=== PATIENT | male | born 1970 | race American Indian/Alaskan Native ===

== ENCOUNTER 2019-03-11 02:08 | Inpatient (IN) | payer OTHER ==
--- NOTE | 2019-03-11 02:26 | Emergency Department Report ---
ED Shortness of Breath HPI - General Chief Complaint: Dyspnea/Respdistress Stated Complaint: VALENTE Time Seen by Provider: 03/11/19 02:16 Source: patient, EMS Mode of arrival: Stretcher Limitations: No Limitations - History of Present Illness Initial Comments: 48-year-old male with history of asthma, hypertension, CAD presents to ED with complaint of shortness of breath that started approximately one hour ago. Pt reports onset of cough as well, productive and blood-tinged, pinkish in color. States feels like he has fluid in his lungs. Reports orthopnea. Pt denies hx of CHF. Pt currently prescribed lisinopril and clonidine, however, states he ran out of his lisinopril and has only been taking clonidine. Patient denies chest pain, leg pain or swelling. EMS reports initial O2 sats in the 80s MD Complaint: shortness of breath -: hour(s) (1) Severity: moderate Consistency: constant Improves With: nothing Worsens With: coughing Associated Symptoms: cough, sputum production Treatments Prior to Arrival: oxygen - Related Data Home Oxygen Therapy: No Home Medications Medication Instructions Recorded Confirmed Last Taken Valsartan [Diovan] 40 mg PO DAILY 08/06/14 08/06/14 Unknown hydroCHLOROthiazide 12.5 mg PO DAILY 08/06/14 08/06/14 Unknown [Hydrochlorothiazide] Previous Rx's Medication Instructions Recorded Last Taken Type Carvedilol [Coreg] 25 mg PO BID #60 tablet 08/09/14 Unknown Rx Rivaroxaban [Xarelto] 20 mg PO QPMDIAB #30 tablet 08/09/14 Unknown Rx Rosuvastatin (Nf) [Crestor] 10 mg PO QHS #30 tablet 08/09/14 Unknown Rx Valsartan [Diovan] 80 mg PO BID #60 tablet 08/09/14 Unknown Rx cloNIDine [Catapres] 0.1 mg PO Q12H PRN #30 tablet 08/09/14 Unknown Rx Allergies Allergy/AdvReac Type Severity Reaction Status Date / Time No Known Allergies Allergy Verified 12/19/13 04:26 ED Review of Systems ROS: Stated complaint: VALENTE Other details as noted in HPI Comment: All other systems reviewed and negative Constitutional: denies: chills, fever Respiratory: cough, shortness of breath Cardiovascular: denies: chest pain Musculoskeletal: other (denies leg pain or swelling) ED Past Medical Hx - Past Medical History Previous Medical History?: Yes Hx Hypertension: Yes Hx Heart Attack/AMI: Yes (8 years ago) Hx Asthma: Yes - Surgical History Past Surgical History?: Yes Additional Surgical History: rotator cuff repair R) - Social History Smoking Status: Former Smoker Substance Use Type: None - Medications Home Medications: Home Medications Medication Instructions Recorded Confirmed Last Taken Type Valsartan [Diovan] 40 mg PO DAILY 08/06/14 08/06/14 Unknown History hydroCHLOROthiazide 12.5 mg PO DAILY 08/06/14 08/06/14 Unknown History [Hydrochlorothiazide] Carvedilol [Coreg] 25 mg PO BID #60 tablet 08/09/14 Unknown Rx Rivaroxaban [Xarelto] 20 mg PO QPMDIAB #30 tablet 08/09/14 Unknown Rx Rosuvastatin (Nf) [Crestor] 10 mg PO QHS #30 tablet 08/09/14 Unknown Rx Valsartan [Diovan] 80 mg PO BID #60 tablet 08/09/14 Unknown Rx cloNIDine [Catapres] 0.1 mg PO Q12H PRN #30 tablet 08/09/14 Unknown Rx ED Physical Exam - General Limitations: No Limitations General appearance: alert - Head Head exam: Present: atraumatic, normocephalic - Eye Eye exam: Present: normal appearance - ENT ENT exam: Present: mucous membranes moist - Neck Neck exam: Present: normal inspection - Respiratory Respiratory exam: Present: respiratory distress, decreased breath sounds, other (tachypnea present) - Cardiovascular Cardiovascular Exam: Present: normal rhythm, tachycardia - GI/Abdominal GI/Abdominal exam: Present: soft. Absent: distended, tenderness - Extremities Exam Extremities exam: Present: normal inspection. Absent: pedal edema, calf tenderness - Neurological Exam Neurological exam: Present: alert, oriented X3 - Psychiatric Psychiatric exam: Present: normal affect, normal mood - Skin Skin exam: Present: warm, dry, intact, normal color ED Course Vital Signs 03/11/19 03/11/19 03/11/19 02:13 02:33 02:55 Temperature 98.2 F Pulse Rate 102 H 99 H Pulse Rate [ Posterior Bilateral Throughout] Respiratory 25 H 25 H Rate Respiratory Rate [Posterior Bilateral Throughout] Blood Pressure 211/129 225/147 O2 Sat by Pulse 98 97 Oximetry 03/11/19 03/11/19 03/11/19 02:58 03:24 03:42 Temperature Pulse Rate 106 H Pulse Rate [ 100 H 102 H Posterior Bilateral Throughout] Respiratory Rate Respiratory 19 22 Rate [Posterior Bilateral Throughout] Blood Pressure 216/140 O2 Sat by Pulse Oximetry 03/11/19 04:02 Temperature Pulse Rate 105 H Pulse Rate [ Posterior Bilateral Throughout] Respiratory Rate Respiratory Rate [Posterior Bilateral Throughout] Blood Pressure 195/124 O2 Sat by Pulse Oximetry ED Medical Decision Making - Lab Data Result diagrams: 03/11/19 02:36 03/11/19 02:36 - EKG Data -: EKG Interpreted by [facility] EKG shows normal: sinus rhythm, axis, intervals, QRS complexes Rate: tachycardia (rate 101) - EKG Data When compared to previous EKG there are: no significant change (compared to 08/2014) Interpretation: LVH, other (T wave inversions in lateral leads) - Radiology Data Radiology results: report reviewed, image reviewed - Medical Decision Making - 48 yo M w/ HTN, CAD, asthma present w/ acute resp distress and hypertensive urgency - reports orthopnea and pinkish sputum - hydralazine given for BP control - albuterol, atrovent nebs given initially due to decreased breath sounds and hx asthma - however, CXR appears to have interstitial infiltrates, cardiomegaly, and BNP is elevated; this is likely new onset CHF - CXR reports states pneumonia also possible, however, pt afebrile w/ normal WBCs - respiratory status has improved, no need for BiPAP at this time - Cr 2.2 and pt hypokalemic; will hold lasix at this time - pt admitted to hospitalist for further management - Differential Diagnosis CHF, pneumonia, asthma, PE Critical Care Time: Yes Critical care time in (mins) excluding proc time.: 35 Critical care attestation.: If time is entered above; I have spent that time in minutes in the direct care of this critically ill patient, excluding procedure time. Critical Care Time: 35 minutes ED Disposition Clinical Impression: Acute respiratory distress, Acute renal failure, New onset of congestive heart failure, Hypokalemia, Hypertensive emergency Disposition: OP ADMIT IP TO THIS HOSP Is pt being admited?: Yes Condition: Stable Instructions: Hypertension (ED) Referrals: CASSIDY JACOBS MD [Primary Care Provider] - 3-5 Days Time of Disposition: 03:27
[2019-03-11 02:45] LABS: Basophils # (Auto) 0.1 K/mm3 (0.0-0.1); Basophils % (Auto) 1.1 % (0.0-1.8); Eosinophils # (Auto) 0.2 K/mm3 (0.0-0.4); Eosinophils % (Auto) 1.7 % (0.0-4.3); Hematocrit 44.1 % (35.5-45.6); Hemoglobin 14.4 gm/dl (11.8-15.2); Lymphocytes # (Auto) 2.8 K/mm3 (1.2-5.4); Lymphocytes % (Auto) 27.9 % (13.4-35.0); Mean Corpuscular HGB Conc 33 % (32-34); Mean Corpuscular Volume 85 fl (84-94); Monocytes # (Auto) 0.8 K/mm3 (0.0-0.8); Monocytes % (Auto) 7.8 % (0.0-7.3); Platelet Count 111 K/mm3 (140-440); Red Blood Count 5.16 M/mm3 (3.65-5.03)
[2019-03-11] MEDS ORDERED: APRESOLINE IV ONE ×2 (02:48→03:38)
[2019-03-11] MEDS ORDERED: PROVENTIL IH ONE (02:49)
[2019-03-11] MEDS ORDERED: ATROVENT IH ONE (02:49)
--- NOTE | 2019-03-11 02:52 | XRay Report ---
CHEST 1 VIEW INDICATION: sob. COMPARISON: None. FINDINGS: Support devices: None. Heart: Enlarged Lungs/Pleura: There are somewhat patchy rather diffuse bilateral pulmonary opacities, greater on the right. No significant effusion, no pneumothorax. IMPRESSION: 1. Patchy bilateral pulmonary opacities, greater on the right. These are nonspecific. Bilateral pneum onia could have this appearance, given the patchy appearance. 2. Cardiomegaly. Signer Name: Celestine Price MD Signed: 03/11/2019 2:48 AM Workstation Name: [id number]
[2019-03-11 02:56] LABS: INR 1.56 (0.87-1.13)
[2019-03-11 02:57] LABS: Partial Thromboplastin Time 31.8 Sec. (24.2-36.6)
[2019-03-11 03:02] LABS: Calcium 8.8 mg/dL (8.4-10.2)
[2019-03-11] MEDS ORDERED: K-DUR PO ONE ×2 (03:11→13:00)
[2019-03-11] MEDS ORDERED: NITRO-BID 2% TP ONE ×2 (04:00→04:02)
[2019-03-11] MEDS ORDERED: LASIX IV ONE (04:06)
[2019-03-11] MEDS ORDERED: SODIUM CHLORIDE FLUSH SYRINGE 10 ML IV PRN (04:07)
[2019-03-11] MEDS ORDERED: TYLENOL PO PRN (04:07)
[2019-03-11] MEDS ORDERED: ZOFRAN IV PRN (04:07)
[2019-03-11] MEDS ORDERED: LASIX ONE (04:10)
--- NOTE | 2019-03-11 04:13 | History and Physical Report ---
History of Present Illness Date of examination: 03/11/19 History of present illness: 48-year-old man with a history of coronary artery disease, hypertension, asthma comes emergency room with complaints of shortness of breath cough productive of pink blood tinge sputum. He has been noncompliant with antihypertensive little over 2 months. Complaining of feeling dizzy Review of systems Constitutional: no weight loss, chills, fever Ears, eyes, nose, mouth and throat: no nasal congestion, no nasal discharge, no sinus pressure, no vision change, no red eye. Neck: No neck pain or rigidity. Cardiovascular: no palpitations, chest pain Respiratory: + cough, shortness of breath Gastrointestinal: no hematochezia, abdominal pain Genitourinary : no frequency , no hematuria Musculoskeletal: no joint swelling or muscle ache Integumentary: no rash, no pruritis Neurological: no parathesias, no focal weakness Endocrine: no cold or heat intolerance, no polyuria or polydipsia Hematologic/Lymphatic: no easy bruising, no easy bleeding, no gland swelling Allergic/Immunologic: no urticaria, no angioedema. PAST MEDICAL HISTORY:coronary artery disease, hypertension, asthma PAST SURGICAL HISTORY: Rotator cuff SOCIAL HISTORY: Denies alcohol, drugs, tobacco FAMILY HISTORY: Hypertension Medications and Allergies Allergies Allergy/AdvReac Type Severity Reaction Status Date / Time No Known Allergies Allergy Verified 12/19/13 04:26 Home Medications Medication Instructions Recorded Confirmed Last Taken Type Aspirin EC 81 mg PO QDAY #30 tablet. 03/14/19 Unknown Rx AtorvaSTATin [Lipitor] 20 mg PO QHS #30 tab 03/14/19 Unknown Rx Carvedilol [Coreg] 25 mg PO BID #60 tablet 03/14/19 Unknown Rx NIFEdipine XL [Procardia Xl] 90 mg PO QDAY #30 tablet 03/14/19 Unknown Rx Potassium Chloride [K-Dur] 20 meq PO QDAY #4 tablet 03/14/19 Unknown Rx Spironolactone [Aldactone] 25 mg PO QDAY #30 tablet 03/14/19 Unknown Rx hydrALAZINE [Apresoline TAB] 50 mg PO Q8HR #90 tablet 03/14/19 Unknown Rx Active Meds: Active Medications Acetaminophen (Tylenol) 650 mg PO Q4H PRN PRN Reason: Pain MILD(1-3)/Fever >100.5/ELLIOTT Enoxaparin Sodium (Lovenox) 30 mg SUB-Q QDAY DEIS[facility] Furosemide (Lasix) 10 mg IV ONCE ONE Stop: 03/11/19 04:07 Potassium Chloride (Kcl 10meq/100ml) 10 meq in 100 mls @ 100 mls/hr IV Q1H DEISI Stop: 03/11/19 08:59 Ondansetron HCl (Zofran) 4 mg IV Q8H PRN PRN Reason: Nausea And Vomiting Sodium Chloride (Sodium Chloride Flush Syringe 10 Ml) 10 ml IV BID DEISI Sodium Chloride (Sodium Chloride Flush Syringe 10 Ml) 10 ml IV PRN PRN PRN Reason: LINE FLUSH Exam - Physical Exam Narrative exam: General Apperance: The patient lying in bed, breathing comfortable HEENT: Normocephalic, atraumatic. Pupils equally round and reactive to light, EOMI, no sclericterus or JVD or thyromegaly or nodule. , no carotid bruit, mucous membranes moist, no exudate or erythema Heart: S1-S2, regular is rhythm Lungs: Mild crackles bilaterally, breathing comfortable Abdomen: Positive bowel sounds, soft, nontender, nondistended, no organomegaly Extremities: No edema cyanosis clubbing Skin: no rash, nodule, warm and dry Neuro: cranial nerves 2-12 intact, speech is fluent, motor/sensory intact - Constitutional Vitals: Temp Pulse Resp BP Pulse Ox 98.2 F 105 H 22 195/124 97 03/11/19 02:13 03/11/19 04:02 03/11/19 03:24 03/11/19 04:02 03/11/19 02:33 Results - Labs CBC & Chem 7: 03/12/19 04:37 03/14/19 05:29 Labs: Abnormal lab results 03/11/19 03/11/19 03/11/19 Range/Units 02:36 02:36 02:36 RBC 5.16 H (3.65-5.03) M/mm3 RDW 16.0 H (13.2-15.2) % Plt Count 111 L (140-440) K/mm3 [place] % (Auto) 7.8 H (0.0-7.3) % PT 18.3 H (12.2-14.9) Sec. INR 1.56 H (0.87-1.13) D-Dimer 261.03 H (0-234) ng/mlDDU Potassium (3.6-5.0) mmol/L BUN (9-20) mg/dL Creatinine (0.8-1.5) mg/dL Glucose (75-100) mg/dL NT-Pro-B Natriuret Pep 753.5 H (0-450) pg/mL 03/11/19 Range/Units 02:36 RBC (3.65-5.03) M/mm3 RDW (13.2-15.2) % Plt Count (140-440) K/mm3 [place] % (Auto) (0.0-7.3) % PT (12.2-14.9) Sec. INR (0.87-1.13) D-Dimer (0-234) ng/mlDDU Potassium 2.4 L* (3.6-5.0) mmol/L BUN 25 H (9-20) mg/dL Creatinine 2.2 H (0.8-1.5) mg/dL Glucose 122 H (75-100) mg/dL NT-Pro-B Natriuret Pep (0-450) pg/mL - Imaging and Cardiology EKG: image reviewed Chest x-ray: image reviewed Assessment and Plan Assessment Hypertensive urgency, malignant Pulmonary edema secondary to #1 Hypokalemia Abnormal d-dimer Renal failure most likely chronic from unontrolled BP Coronary artery disease Thrombocytopenia Plan Admit to medicine Give a small dose of IV Lasix, Nitropaste repeat potassium aggressively, follow repeat BMP IV hydralazine as needed for BP control Check CT head, v/Q, cardiac enzymes, echo DVT prophylaxis
[2019-03-11] MEDS ORDERED: APRESOLINE IV PRN ×2 (04:16→17:46)
[2019-03-11] MEDS: KCL 10MEQ/100ML 10 MEQ/100 ML BAG IV SCH ×4 (04:30→10:04)
[2019-03-11 04:46] LABS: Creatine Kinase MB 2.6 ng/mL (0.0-4.0)
[2019-03-11] MEDS: LEVAQUIN PO SCH (05:14)
[2019-03-11] MEDS ORDERED: KCL 10MEQ/100ML 10 MEQ/100 ML BAG IV ONE ×3 (05:37→10:00)
--- NOTE | 2019-03-11 05:37 | Cat Scan Report ---
CT HEAD WITHOUT CONTRAST INDICATION: htn dizzy. TECHNIQUE: All CT scans at this location are performed using CT dose reduction for ALARA by means of automated e xposure control. COMPARISON: CT 08/06/2014 FINDINGS: HEMORRHAGE: None. EXTRA-AXIAL SPACES: Normal in size and morphology for the patient's age. VENTRICULAR SYSTEM: Normal in size and morphology for the patient's age. BRAIN PARENCHYMA: No acute findings. MIDLINE SHIFT OR HERNIATION: None. ORBITS: Normal as visualized. SOFT TISSUES OF HEAD: Normal. CALVARIUM: Normal. VISUALIZED PARANASAL SINUSES AND MASTOID AIR CELLS: Clear. ADDITIONAL FINDINGS: None. IMPRESSION: 1. No acute intracranial abnormality. Signer Name: Celestine Price MD Signed: 03/11/2019 5:33 AM Workstation Name: [id number]
[2019-03-11] MEDS ORDERED: LOVENOX SUB-Q SCH (10:00)
[2019-03-11] MEDS: SODIUM CHLORIDE FLUSH SYRINGE 10 ML IV SCH ×2 (10:04→21:26)
[2019-03-11 10:40] LABS: Creatine Kinase MB 2.2 ng/mL (0.0-4.0)
[2019-03-11 10:45] LABS: Calcium 8.8 mg/dL (8.4-10.2)
--- NOTE | 2019-03-11 13:14 | Consultation ---
<SURJIT LEONARD - Last Filed: 03/11/19 13:10> History of Present Illness Consult date: 03/11/19 Consult reason: shortness of breath History of present illness: Patient is a 48-year old male with a history of paroxysmal atrial fibrillation, no longer on anticoagulation, and hypertension. His latest cardiac workup was done in 2013. At that time, he had a normal persantine thallium stress test and a normal LVEF by echocardiogram. He presents to this hospital with complaints of shortness of breath and coughs, admitted with acute respiratory failure, hypertensive urgency and acute renal failure. Chest x-ray reports cardiomegaly with diffuse bilateral pulmonary opacities. Creatinine 2.2. Initial labs also shows a platelet count of 111,000 and severe hypokalemia, potassium of 2.4. WBC is normal. Patient admits to running out of his medications. He denies chest pain and palpitations. There is no lower extremity edema. An EKG is sinus rhythm, LVH with repolarization abnormalities. Medications and Allergies Allergies Allergy/AdvReac Type Severity Reaction Status Date / Time No Known Allergies Allergy Verified 12/19/13 04:26 Home Medications Medication Instructions Recorded Confirmed Last Taken Type Carvedilol [Coreg] 25 mg PO BID #60 tablet 08/09/14 03/11/19 Unknown Rx Lisinopril [Zestril TAB] 10 mg PO QDAY 03/11/19 03/11/19 Unknown History Active Meds: Active Medications Acetaminophen (Tylenol) 650 mg PO Q4H PRN PRN Reason: Pain MILD(1-3)/Fever >100.5/ELLIOTT Hydralazine HCl (Apresoline) 5 mg IV Q6H PRN PRN Reason: Hypertension Levofloxacin (Levaquin) 750 mg PO QDAY [facility] Last Admin: 03/11/19 05:14 Dose: 750 mg Documented by: Ondansetron HCl (Zofran) 4 mg IV Q8H PRN PRN Reason: Nausea And Vomiting Potassium Chloride (K-Dur) 40 meq PO QDAY [facility] Sodium Chloride (Sodium Chloride Flush Syringe 10 Ml) 10 ml IV BID [facility] Last Admin: 03/11/19 10:04 Dose: 10 ml Documented by: Sodium Chloride (Sodium Chloride Flush Syringe 10 Ml) 10 ml IV PRN PRN PRN Reason: LINE FLUSH Physical Examination Vital Signs Temp Pulse Resp BP Pulse Ox 98.2 F 102 H 25 H 211/129 98 03/11/19 02:13 03/11/19 02:13 03/11/19 02:13 03/11/19 02:13 03/11/19 02:13 General appearance: no acute distress HEENT: Positive: PERRL Neck: Positive: trachea midline Cardiac: Positive: Reg Rate and Rhythm Lungs: Positive: Decreased Breath Sounds Extremities: Absent: edema Results 03/11/19 02:36 03/11/19 10:10 Cardiac Enzymes 03/11/19 03/11/19 Range/Units 04:16 10:10 CK-MB (CK-2) 2.6 2.2 (0.0-4.0) ng/mL Coagulation 03/11/19 Range/Units 02:36 PT 18.3 H (12.2-14.9) Sec. INR 1.56 H (0.87-1.13) APTT 31.8 (24.2-36.6) Sec. CBC 03/11/19 Range/Units 02:36 WBC 10.1 (4.5-11.0) K/mm3 RBC 5.16 H (3.65-5.03) M/mm3 Hgb 14.4 (11.8-15.2) gm/dl Hct 44.1 (35.5-45.6) % Plt Count 111 L (140-440) K/mm3 Lymph # 2.8 (1.2-5.4) K/mm3 [place] # 0.8 (0.0-0.8) K/mm3 Eos # 0.2 (0.0-0.4) K/mm3 Baso # 0.1 (0.0-0.1) K/mm3 Comprehensive Metabolic Panel 03/11/19 03/11/19 Range/Units 02:36 10:10 Sodium 140 140 (137-145) mmol/L Potassium 2.4 L* 3.1 L D (3.6-5.0) mmol/L Chloride 100.5 100.7 (98-107) mmol/L Carbon Dioxide 27 27 (22-30) mmol/L BUN 25 H 22 H (9-20) mg/dL Creatinine 2.2 H 2.0 H (0.8-1.5) mg/dL Glucose 122 H 143 H (75-100) mg/dL Calcium 8.8 8.8 (8.4-10.2) mg/dL Assessment and Plan Acute respiratory failure Hypertensive urgency Noncompliant with medications Hypokalemia Acute renal failure Thrombocytopenia Recommendations: Optimal BP management. We will obtain an echocardiogram for LVEF assessment. Neurology evaluation and workup of acute renal failure. <JACKY CURRIE - Last Filed: 03/11/19 19:11> Medications and Allergies Active Meds: Active Medications Acetaminophen (Tylenol) 650 mg PO Q4H PRN PRN Reason: Pain MILD(1-3)/Fever >100.5/ELLIOTT Amlodipine Besylate (Norvasc) 10 mg PO QDAY [facility] Last Admin: 03/11/19 18:03 Dose: 10 mg Documented by: Carvedilol (Coreg) 25 mg PO BID [facility] Last Admin: 03/11/19 14:50 Dose: 25 mg Documented by: Hydralazine HCl (Apresoline) 10 mg IV Q30MIN PRN PRN Reason: HTNN SBP>175 Hydralazine HCl (Apresoline) 50 mg PO Q8HR [facility] Last Admin: 03/11/19 18:03 Dose: 50 mg Documented by: Levofloxacin (Levaquin) 750 mg PO QDAY [facility] Last Admin: 03/11/19 05:14 Dose: 750 mg Documented by: Lisinopril (Zestril) 10 mg PO QDAY [facility] Ondansetron HCl (Zofran) 4 mg IV Q8H PRN PRN Reason: Nausea And Vomiting Potassium Chloride (K-Dur) 40 meq PO QDAY [facility] Sodium Chloride (Sodium Chloride Flush Syringe 10 Ml) 10 ml IV BID [facility] Last Admin: 03/11/19 10:04 Dose: 10 ml Documented by: Sodium Chloride (Sodium Chloride Flush Syringe 10 Ml) 10 ml IV PRN PRN PRN Reason: LINE FLUSH Last Admin: 03/11/19 13:47 Dose: 10 ml Documented by: Physical Examination Vital Signs Temp Pulse Resp BP Pulse Ox 98.2 F 102 H 25 H 211/129 98 03/11/19 02:13 03/11/19 02:13 03/11/19 02:13 03/11/19 02:13 03/11/19 02:13 Results 03/11/19 02:36 03/11/19 10:10 Cardiac Enzymes 03/11/19 03/11/19 Range/Units 04:16 10:10 CK-MB (CK-2) 2.6 2.2 (0.0-4.0) ng/mL Coagulation 03/11/19 Range/Units 02:36 PT 18.3 H (12.2-14.9) Sec. INR 1.56 H (0.87-1.13) APTT 31.8 (24.2-36.6) Sec. CBC 03/11/19 Range/Units 02:36 WBC 10.1 (4.5-11.0) K/mm3 RBC 5.16 H (3.65-5.03) M/mm3 Hgb 14.4 (11.8-15.2) gm/dl Hct 44.1 (35.5-45.6) % Plt Count 111 L (140-440) K/mm3 Lymph # 2.8 (1.2-5.4) K/mm3 [place] # 0.8 (0.0-0.8) K/mm3 Eos # 0.2 (0.0-0.4) K/mm3 Baso # 0.1 (0.0-0.1) K/mm3 Comprehensive Metabolic Panel 03/11/19 03/11/19 Range/Units 02:36 10:10 Sodium 140 140 (137-145) mmol/L Potassium 2.4 L* 3.1 L D (3.6-5.0) mmol/L Chloride 100.5 100.7 (98-107) mmol/L Carbon Dioxide 27 27 (22-30) mmol/L BUN 25 H 22 H (9-20) mg/dL Creatinine 2.2 H 2.0 H (0.8-1.5) mg/dL Glucose 122 H 143 H (75-100) mg/dL Calcium 8.8 8.8 (8.4-10.2) mg/dL Assessment and Plan I have seen and evaluated the patient and agree with the assessment and plan. Recommend maximization of medical therapy as blood pressure allows. Check echo for evaluation of LV structure and function.
--- NOTE | 2019-03-11 14:26 | Event Note ---
Date: 03/11/19 Patient seen and examined Feeling better today, blood sugar improved, tolerating diet Continue current plan and management as dictated in H&P.
[2019-03-11] MEDS: COREG PO SCH ×2 (14:50→21:25)
[2019-03-11] MEDS ORDERED: ZESTRIL PO SCH (17:46)
[2019-03-11] MEDS: APRESOLINE PO SCH ×2 (18:03→21:25)
[2019-03-11] MEDS: NORVASC PO SCH (18:03)
[2019-03-12] MEDS: APRESOLINE PO SCH ×3 (05:16→22:06)
[2019-03-12 05:42] LABS: Basophils # (Auto) 0.1 K/mm3 (0.0-0.1); Basophils % (Auto) 0.5 % (0.0-1.8); Eosinophils % (Auto) 0.4 % (0.0-4.3); Hematocrit 41.1 % (35.5-45.6); Hemoglobin 13.5 gm/dl (11.8-15.2); Lymphocytes % (Auto) 16.8 % (13.4-35.0); Mean Corpuscular HGB Conc 33 % (32-34); Mean Corpuscular Volume 85 fl (84-94); Monocytes % (Auto) 8.1 % (0.0-7.3); Platelet Count 110 K/mm3 (140-440); Red Blood Count 4.82 M/mm3 (3.65-5.03); Red Cell Distribution Width 15.9 % (13.2-15.2)
[2019-03-12 06:03] LABS: Calcium 9.3 mg/dL (8.4-10.2)
[2019-03-12] MEDS: NORVASC PO SCH (09:51)
[2019-03-12] MEDS: SODIUM CHLORIDE FLUSH SYRINGE 10 ML IV SCH ×2 (09:52→22:07)
[2019-03-12] MEDS: COREG PO SCH ×2 (09:52→22:06)
[2019-03-12] MEDS ORDERED: K-DUR PO SCH (10:00)
[2019-03-12] MEDS ORDERED: ZESTRIL PO SCH (10:00)
[2019-03-12] MEDS: LEVAQUIN PO SCH (10:08)
--- NOTE | 2019-03-12 11:00 | Progress Note ---
Assessment and Plan Acute respiratory failure Pulmonary edema Hypertensive urgency Noncompliant with medications Hypokalemia Acute renal failure Thrombocytopenia Recommend: Echocardiogram for LVEF assessment. Nephrology evaluation and workup in renal failure. Subjective Date of service: 03/12/19 Interval history: Patient is resting in bed comfortably. Reports his breathing is better. Stable sinus rhythm on telemetry. Objective Vital Signs Temp Pulse Resp BP BP Pulse Ox 03/12/19 08:20 98.0 F 18 161/110 03/12/19 03:38 97.9 F 80 19 134/92 97 03/12/19 03:00 84 03/11/19 22:53 98.0 F 87 18 131/88 97 03/11/19 21:25 89 184/126 03/11/19 21:18 184/126 03/11/19 19:35 98.1 F 91 H 19 157/108 97 03/11/19 18:03 187/125 03/11/19 17:00 98.1 F 18 187/125 03/11/19 16:58 91 H 182/129 98 03/11/19 14:50 191/130 03/11/19 13:30 97.8 F 18 191/130 03/11/19 12:48 100 03/11/19 12:11 175/97 100 03/11/19 12:10 86 16 170/72 98 03/11/19 12:02 88 17 175/97 100 03/11/19 11:50 90 17 175/97 100 03/11/19 11:40 89 17 175/97 100 03/11/19 11:30 89 18 175/97 100 03/11/19 11:20 88 18 175/97 100 03/11/19 11:10 90 19 175/97 100 03/11/19 11:00 90 22 158/95 100 - Physical Examination General: No Apparent Distress HEENT: Positive: PERRL Neck: Positive: trachea midline Cardiac: Positive: Reg Rate and Rhythm Lungs: Positive: Decreased Breath Sounds Neuro: Positive: Grossly Intact Extremities: Absent: edema - Labs and Meds CBC 03/12/19 Range/Units 04:37 WBC 12.0 H (4.5-11.0) K/mm3 RBC 4.82 (3.65-5.03) M/mm3 Hgb 13.5 (11.8-15.2) gm/dl Hct 41.1 (35.5-45.6) % Plt Count 110 L (140-440) K/mm3 Lymph # 2.0 (1.2-5.4) K/mm3 [place] # 1.0 H (0.0-0.8) K/mm3 Eos # 0.0 (0.0-0.4) K/mm3 Baso # 0.1 (0.0-0.1) K/mm3 Comprehensive Metabolic Panel 03/12/19 Range/Units 04:37 Sodium 141 (137-145) mmol/L Potassium 3.1 L (3.6-5.0) mmol/L Chloride 102.8 (98-107) mmol/L Carbon Dioxide 25 (22-30) mmol/L BUN 24 H (9-20) mg/dL Creatinine 2.0 H (0.8-1.5) mg/dL Glucose 114 H (75-100) mg/dL Calcium 9.3 (8.4-10.2) mg/dL
--- NOTE | 2019-03-12 15:15 | XRay Report ---
CHEST 1 VIEW INDICATION: Pulmonary edema, shortness of breath for 2 days. COMPARISON: 03/11/2028 FINDINGS: Support devices: None. Heart: Within normal limits. Lungs/Pleura: No acute air space or interstitial disease. Additional findings: None. IMPRESSION: Mild cardiomegaly and pulmonary venous congestion have resolved since the previous exam. Unremarkabl e chest x-ray. Signer Name: Trevor Segura Jr, MD Signed: 03/12/2019 2:54 PM Workstation Name: [id number]
--- NOTE | 2019-03-12 15:50 | Progress Note ---
Assessment and Plan Acute hypoxic respiratory failure due to pulmonary edema - Now resolved with diuresis - Continue to monitor with O2 sat, continue diuresis - Follow 2-D echo Malignant hypertension - Likely due to medication noncompliance - Resumed home meds and adjust medications as needed - IV hydralazine as needed Noncompliance with medication, counseled Hypokalemia, continue to replete and monitor BMP Acute renal failure, could be from medication induced versus nephropathy - Continue to monitor renal function, order renal ultrasound, consult nephrology Thrombocytopenia, continue to monitor CBC DVT prophylaxis, continue heparin Brief History: Patient is a 48-year old male with a history of paroxysmal atrial fibrillation, no longer on anticoagulation, and hypertension presents to this hospital with complaints of shortness of breath and coughs, admitted with acute respiratory failure, hypertensive urgency and acute renal failure. Chest x-ray reports cardiomegaly with diffuse bilateral pulmonary opacities. Creatinine 2.2. Initial labs also shows a platelet count of 111,000 and severe hypokalemia, potassium of 2.4. WBC is normal. Radiological data: Chest x-ray: Cardiomegaly with diffuse bilateral pulmonary opacities 2-D echo: Report pending Hospitalist Physical exam: GENERAL: well-developed and well-nourished -[place] Citizen male lying on bed appeared to be in no discomfort. HEENT: Normocephalic. Atraumatic. No conjunctival congestion or icterus. Patient has moist mucous membranes. NECK: Supple. Trachea midline. CHEST/LUNGS: Few crackles auscultated bilaterally, breathing nonlabored. No wheezes or rhonchi. HEART/CARDIOVASCULAR: Regular in rate and rhythm. S1 and S2 positive. ABDOMEN: Abdomen is soft, nontender. Patient has normal bowel sounds. SKIN: There is no rash. Warm and dry. NEURO: No focal motor deficit. Follows command. MUSCULOSKELETAL: No joint effusion or tenderness. EXTRIMITY: No edema, no cyanosis or clubbing. PSYCH: Cooperative. Subjective Date of service: 03/12/19 Interval history: Patient seen and examined. Medical records and medication list reviewed. No acute event overnight noted by the RN. Patient denies any chest pain or difficulty breathing today. Patient is tolerating diet. Discussed plan of care at bedside with patient. Objective - Constitutional Vitals: Vital Signs - 12hr 03/12/19 08:20 Temperature 98.0 F Respiratory 18 Rate Blood Pressure 161/110 - Labs CBC & Chem 7: 03/12/19 04:37 03/12/19 19:52 Labs: Abnormal lab results 03/12/19 03/12/19 Range/Units 04:37 04:37 WBC 12.0 H (4.5-11.0) K/mm3 RDW 15.9 H (13.2-15.2) % Plt Count 110 L (140-440) K/mm3 Bryan % (Auto) 8.1 H (0.0-7.3) % Bryan # 1.0 H (0.0-0.8) K/mm3 Seg Neutrophils % 74.2 H (40.0-70.0) % Seg Neutrophils # 8.9 H (1.8-7.7) K/mm3 Potassium 3.1 L (3.6-5.0) mmol/L BUN 24 H (9-20) mg/dL Creatinine 2.0 H (0.8-1.5) mg/dL Glucose 114 H (75-100) mg/dL
[2019-03-12] MEDS: LASIX PO SCH (20:07)
[2019-03-12] MEDS: PROCARDIA XL PO SCH (20:07)
[2019-03-12] MEDS: ALDACTONE PO SCH (20:07)
[2019-03-12 21:33] LABS: Albumin 3.5 g/dL (3.9-5); Calcium 8.8 mg/dL (8.4-10.2)
[2019-03-12] MEDS: HEPARIN SUB-Q SCH (22:07)
[2019-03-13] MEDS: APRESOLINE PO SCH ×3 (05:25→22:26)
[2019-03-13] MEDS: LASIX PO SCH (05:26)
[2019-03-13 05:44] LABS: Bilirubin,Urine NEG (Negative); Blood,Urine NEG (Negative); Color,Urine Yellow (Yellow); Hyaline Casts,Urine 10 /LPF; Mucus,Urine FEW /HPF; Urobilinogen,Urine < 2.0 mg/dL (<2.0)
[2019-03-13 05:47] LABS: Creatinine,Urine 167.3 mg/dL (0.1-20.0); Protein/Creatinine Ratio,Urine 0.37
[2019-03-13] MEDS ORDERED: LEXISCAN IV ONE ×2 (07:42→08:17)
--- NOTE | 2019-03-13 08:39 | Consultation ---
History of Present Illness - Reason for Consult Consult date: 03/13/19 acute renal failure, chronic renal failure - History of Present Illness The patient is a 48 YO male with history significant for Obesity, poorly controlled HTN, Paroxysmal atrial fibrillation not on anticoagulation and chron ic kidney disease who presented to [facility] ED with complaints of shortness of breath and cough productive of phlegm for the past several weeks, worse for the past week. He has been noncompliant with antihypertensive medication anc currently not taking any meds. He also reports feeling dizzy at times. His initial BP was around 220/140 mmHg. He was admitted with acute respiratory failure, hypertensive urgency and acute renal failure. Chest x-ray reported cardiomegaly with diffuse bilateral pulmonary opacities. Initial Creatinine was 2.2 and potassium of 2.4. Nephrology was consulted for further evaluation. Past History Past Medical History: hypertension, renal failure Medications and Allergies Allergies Allergy/AdvReac Type Severity Reaction Status Date / Time No Known Allergies Allergy Verified 12/19/13 04:26 Home Medications Medication Instructions Recorded Confirmed Last Taken Type Carvedilol [Coreg] 25 mg PO BID #60 tablet 08/09/14 03/11/19 Unknown Rx Lisinopril [Zestril TAB] 10 mg PO QDAY 03/11/19 03/11/19 Unknown History Active Meds: Active Medications Acetaminophen (Tylenol) 650 mg PO Q4H PRN PRN Reason: Pain MILD(1-3)/Fever >100.5/ELLIOTT Carvedilol (Coreg) 25 mg PO BID [facility] Last Admin: 03/12/19 22:06 Dose: 25 mg Documented by: Furosemide (Lasix) 60 mg PO DAILY@0600 [facility] Last Admin: 03/13/19 05:26 Dose: 60 mg Documented by: Heparin Sodium (Porcine) (Heparin) 5,000 unit SUB-Q Q12HR [facility] Last Admin: 03/12/19 22:07 Dose: 5,000 unit Documented by: Hydralazine HCl (Apresoline) 10 mg IV Q30MIN PRN PRN Reason: HTNN SBP>175 Last Admin: 03/11/19 21:25 Dose: 10 mg Documented by: Hydralazine HCl (Apresoline) 50 mg PO Q8HR [facility] Last Admin: 03/13/19 05:25 Dose: 50 mg Documented by: Levofloxacin (Levaquin) 750 mg PO QDAY [facility] Last Admin: 03/12/19 10:08 Dose: 750 mg Documented by: Nifedipine (Procardia Xl) 60 mg PO QDAY [facility] Last Admin: 03/12/19 20:07 Dose: 60 mg Documented by: Ondansetron HCl (Zofran) 4 mg IV Q8H PRN PRN Reason: Nausea And Vomiting Sodium Chloride (Sodium Chloride Flush Syringe 10 Ml) 10 ml IV BID [facility] Last Admin: 03/12/19 22:07 Dose: 10 ml Documented by: Sodium Chloride (Sodium Chloride Flush Syringe 10 Ml) 10 ml IV PRN PRN PRN Reason: LINE FLUSH Last Admin: 03/11/19 13:47 Dose: 10 ml Documented by: Spironolactone (Aldactone) 25 mg PO QDAY [facility] Last Admin: 03/12/19 20:07 Dose: 25 mg Documented by: Review of Systems Constitutional: no weight loss, no weight gain, no fever, no chills, no anorexia, no fatigue, no weakness Cardiovascular: orthopnea, lightheadedness, shortness of breath, dyspnea on exertion, high blood pressure, decreased exercise tolerance, no chest pain, no palpitations, no edema, no syncope, no leg edema Respiratory: cough, cough with sputum, shortness of breath, dyspnea on exertion, no hemoptysis, no home oxygen Gastrointestinal: no abdominal pain, no nausea, no vomiting, no diarrhea, no constipation Genitourinary Male: no dysuria, no hematuria, no urinary frequency Musculoskeletal: no morning stiffness, no muscle weakness, no myalgias Integumentary: no rash, no wounds Neurological: no paralysis, no weakness, no numbness, no tingling, no seizures, no syncope, no convulsions, no aphasia, no change in speech, no change in mentation, no confusion Exam - Vital Signs Vital signs: Vital Signs Temp Pulse Resp BP Pulse Ox 98.2 F 102 H 25 H 211/129 98 03/11/19 02:13 03/11/19 02:13 03/11/19 02:13 03/11/19 02:13 03/11/19 02:13 - General Appearance General appearance: well-developed, well-nourished, appears stated age, obese, other (no distress) EENT: ATNC, PERRL, hearing intact, vision intact Neck: Present: neck supple, trachea midline Respiratory: Rales Heart: regular, S1S2, no murmurs Gastrointestinal: Present: normoactive bowel sounds. Absent: tenderness, distended Integumentary: no rash, warm and dry Neurologic: no focal deficit, no asterixis, alert and oriented x3 Musculoskeletal: Present: other (no edema) Results - Lab Results 03/12/19 04:37 03/14/19 05:29 Most recent lab results Calcium 8.8 mg/dL (8.4-10.2) 03/12/19 19:52 Phosphorus 2.50 mg/dL (2.5-4.5) 03/12/19 19:52 Magnesium 2.00 mg/dL (1.7-2.3) 03/12/19 19:52 167.3 mg/dL (0.1-20.0) H 03/13/19 04:55 55 mmol/L 03/13/19 04:55 62 mg/dL (5-11.8) H 03/13/19 04:55 - Image Kidney/bladder ultrasound: report reviewed Assessment and Plan 1. Acute kidney injury: Vasomotor / hemodynamic LV superimposed on CKD in the setting of CHF. Renal US was negative for hydro. Renal function is mostly stable. Suspect worsening CKD. Monitor renal function. Renal function prognosis is guarded. Avoid nephrotoxic agents. Meds dosage based on GFR. 2. FEN: Hypokalemia, replete K. Volume overload, improving with lasix. Monitor lytes. 3. Acute CHF: HFpEF. 4. Uncontrolled Hypertension: BP is better. 5. Medical non-compliance: Counseled.
[2019-03-13] MEDS: SODIUM CHLORIDE FLUSH SYRINGE 10 ML IV SCH ×2 (11:15→22:27)
[2019-03-13] MEDS: ALDACTONE PO SCH (11:20)
[2019-03-13] MEDS: COREG PO SCH ×2 (11:20→22:26)
[2019-03-13] MEDS: PROCARDIA XL PO SCH (11:50)
--- NOTE | 2019-03-13 11:53 | Progress Note ---
Assessment and Plan - Patient Problems (1) Heart failure with preserved ejection fraction Current Visit: Yes Status: Acute Plan to address problem: The patient has a diagnosis of heart failure with preserved ejection fraction, will be treated medically with aggressive blood pressure management, diuretics as tolerated, low-salt diet. He is stable for cardiac discharge on medical management. (2) Uncontrolled hypertension Current Visit: Yes Status: Acute Plan to address problem: Aggressive blood pressure management as previously outlined. Subjective Date of service: 03/13/19 Interval history: The patient underwent an exercise thallium stress test during which he exercised for 10 minutes of the Suresh protocol, thallium stress test was normal. An echocardiogram shows well-preserved left ventricular systolic function, ejection fraction 55%, with moderate to severe concentric left ventricular hypertrophy consistent with his chronic hypertension. Objective Vital Signs Temp Pulse Resp BP Pulse Ox 03/13/19 05:25 125/87 03/13/19 05:20 77 125/87 96 03/13/19 04:49 98.6 F 20 123/74 03/13/19 00:03 98.2 F 80 20 116/80 96 03/13/19 00:00 75 03/12/19 22:06 154/107 03/12/19 22:04 81 98 03/12/19 20:02 98.7 F 84 18 135/87 97 03/12/19 18:36 98.0 F 18 146/93 - Physical Examination General: No Apparent Distress HEENT: Positive: PERRL Neck: Positive: trachea midline Cardiac: Positive: Reg Rate and Rhythm Lungs: Positive: Decreased Breath Sounds Neuro: Positive: Grossly Intact Abdomen: Positive: Soft Extremities: Absent: edema - Labs and Meds Cardiac Enzymes 03/12/19 Range/Units 19:52 AST 23 (5-40) units/L Comprehensive Metabolic Panel 03/12/19 Range/Units 19:52 Sodium 139 (137-145) mmol/L Potassium 3.5 L (3.6-5.0) mmol/L Chloride 101.3 (98-107) mmol/L Carbon Dioxide 25 (22-30) mmol/L BUN 23 H (9-20) mg/dL Creatinine 2.3 H (0.8-1.5) mg/dL Glucose 103 H (75-100) mg/dL Calcium 8.8 (8.4-10.2) mg/dL AST 23 (5-40) units/L ALT 18 (7-56) units/L Alkaline Phosphatase 49 (35-129) units/L Total Protein 6.5 (6.3-8.2) g/dL Albumin 3.5 L (3.9-5) g/dL - Imaging and Cardiology EKG: image reviewed
[2019-03-13] MEDS: HEPARIN SUB-Q SCH ×2 (12:13→22:24)
--- NOTE | 2019-03-13 14:33 | Ultrasound Report ---
ULTRASOUND RENAL INDICATION / CLINICAL INFORMATION: Acute renal failure.. COMPARISON: None available. FINDINGS: RIGHT KIDNEY: Length = 11.4 cm. [normal > 9 cm] - Parenchymal Thickness = 1.7 cm. [normal > 1.5 cm] - Echogenicity: Increased - Hydronephrosis: None. - Cyst or mass: No significant abnormality. - Stones: None seen. LEFT KIDNEY: Length = 10.9 cm. [normal > 9 cm] - Parenchymal Thickness = 1.9 cm. [normal > 1.5 cm] - Echogenicity: Increased - Hydronephrosis: None. - Cyst or mass: No significant abnormality. - Stones: None seen. URINARY BLADDER: No significant abnormality. FREE FLUID: None. ADDITIONAL FINDINGS: None. IMPRESSION: Slightly echogenic kidneys consistent with nonspecific renal parenchymal disease. No focal renal les ion or obstructive uropathy. Signer Name: Trevor Segura Jr, MD Signed: 03/13/2019 2:28 PM Workstation Name: [id number]
--- NOTE | 2019-03-13 14:39 | Progress Note ---
Assessment and Plan Acute hypoxic respiratory failure due to pulmonary edema - Now resolved with diuresis - Continue to monitor with O2 sat, continue diuresis - Follow 2-D echo Acute diastolic HF with pEF - cont current meds, better control BP. - s/p stress test today - follow result Malignant hypertension - Likely due to medication noncompliance - Resumed home meds and adjust medications as needed - IV hydralazine as needed Noncompliance with medication, counseled Hypokalemia, continue to replete and monitor BMP Acute renal failure, could be from medication induced versus possible CKD stage 3 - Continue to monitor renal function, normal findings on renal ultrasound, consulted nephrology Thrombocytopenia, continue to monitor CBC DVT prophylaxis, continue heparin Brief History: Patient is a 48-year old male with a history of paroxysmal atrial fibrillation, no longer on anticoagulation, and hypertension presents to this hospital with complaints of shortness of breath and coughs, admitted with acute respiratory failure, hypertensive urgency and acute renal failure. Chest x-ray reports cardiomegaly with diffuse bilateral pulmonary opacities. Creatinine 2.2. Initial labs also shows a platelet count of 111,000 and severe hypokalemia, potassium of 2.4. WBC is normal. Radiological data: Chest x-ray: Cardiomegaly with diffuse bilateral pulmonary opacities 2-D echo: preserved EF with LVH and DD Hospitalist Physical exam: GENERAL: well-developed and well-nourished -[place] male lying on bed appeared to be in no discomfort. HEENT: Normocephalic. Atraumatic. No conjunctival congestion or icterus. Patient has moist mucous membranes. NECK: Supple. Trachea midline. CHEST/LUNGS: Few crackles auscultated bilaterally, breathing nonlabored. No w heezes or rhonchi. HEART/CARDIOVASCULAR: Regular in rate and rhythm. S1 and S2 positive. ABDOMEN: Abdomen is soft, nontender. Patient has normal bowel sounds. SKIN: There is no rash. Warm and dry. NEURO: No focal motor deficit. Follows command. MUSCULOSKELETAL: No joint effusion or tenderness. EXTRIMITY: No edema, no cyanosis or clubbing. PSYCH: Cooperative. Subjective Date of service: 03/13/19 Interval history: Patient seen and examined. Medical records and medication list reviewed. No acute event overnight noted by the RN. Patient denies any chest pain or difficulty breathing today. Patient is tolerating diet. Discussed plan of care at bedside with patient. Objective - Constitutional Vitals: Vital Signs - 12hr 03/13/19 03/13/19 03/13/19 04:49 05:20 05:25 Temperature 98.6 F Pulse Rate 77 Respiratory 20 Rate Blood Pressure 123/74 125/87 125/87 O2 Sat by Pulse 96 Oximetry 03/13/19 03/13/19 03/13/19 09:58 10:00 11:20 Temperature Pulse Rate 86 Respiratory 14 Rate Blood Pressure 126/77 141/97 O2 Sat by Pulse 96 Oximetry 03/13/19 12:04 Temperature Pulse Rate Respiratory Rate Blood Pressure 141/97 O2 Sat by Pulse Oximetry - Labs CBC & Chem 7: 03/12/19 04:37 03/14/19 05:29 Labs: Abnormal lab results 03/12/19 03/12/19 03/13/19 Range/Units 19:52 19:52 04:55 Potassium 3.5 L (3.6-5.0) mmol/L BUN 23 H (9-20) mg/dL Creatinine 2.3 H (0.8-1.5) mg/dL Glucose 103 H (75-100) mg/dL Albumin 3.5 L (3.9-5) g/dL PTH Intact 152.7 H (15-65) pg/mL Urine Creatinine 167.3 H (0.1-20.0) mg/dL Urine Total Protein 62 H (5-11.8) mg/dL
--- NOTE | 2019-03-13 16:34 | Treadmill Report ---
THALLIUM STRESS TEST LEFT VENTRICLE: Left ventricular chamber size is within normal limits. Perfusion study demonstrates homogeneous uptake of the tracer in all segments, no significant perfusion defects identified. Gated analysis is suboptimal. CONCLUSION: Normal myocardial perfusion scan, recommend echocardiography for left ventricular function assessment. JOB# [id number] CA/NTS
[2019-03-13 18:14] LABS: Calcium 9.2 mg/dL (8.4-10.2)
[2019-03-13] MEDS: LEVAQUIN PO SCH (19:33)
[2019-03-14] MEDS: LASIX PO SCH (06:07)
[2019-03-14] MEDS: APRESOLINE PO SCH ×2 (06:07→13:51)
[2019-03-14 06:19] LABS: Calcium 8.8 mg/dL (8.4-10.2)
[2019-03-14] MEDS ORDERED: K-DUR PO ONE (08:00)
[2019-03-14] MEDS ORDERED: LEVAQUIN PO SCH (10:00)
[2019-03-14] MEDS: ALDACTONE PO SCH (10:18)
[2019-03-14] MEDS: COREG PO SCH (10:18)
[2019-03-14] MEDS: PROCARDIA XL PO SCH (10:18)
[2019-03-14] MEDS: HEPARIN SUB-Q SCH (10:19)
[2019-03-14] MEDS: SODIUM CHLORIDE FLUSH SYRINGE 10 ML IV SCH (10:20)
--- NOTE | 2019-03-14 10:52 | Progress Note ---
Assessment and Plan (1) Heart failure with preserved ejection fraction Current Visit: Yes Status: Acute Plan to address problem: The patient has a diagnosis of heart failure with preserved ejection fraction, will be treated medically with aggressive blood pressure management, diuretics as tolerated, low-salt diet. (2) Uncontrolled hypertension Current Visit: Yes Status: Acute Plan to address problem: Increase Procardia Subjective Date of service: 03/14/19 Interval history: No acute events Objective Vital Signs Temp Pulse Resp BP Pulse Ox 03/14/19 10:18 80 150/107 03/14/19 08:25 98.0 F 80 16 150/107 97 03/14/19 05:22 97.9 F 03/14/19 05:21 86 18 131/87 99 03/14/19 02:16 80 03/13/19 22:39 98.2 F 80 18 143/100 98 03/13/19 22:04 97 03/13/19 20:31 84 18 129/87 96 03/13/19 16:59 79 03/13/19 12:04 141/97 03/13/19 12:00 84 03/13/19 11:20 86 141/97 - Physical Examination General: No Apparent Distress HEENT: Positive: PERRL Neck: Positive: neck supple, trachea midline Cardiac: Positive: Reg Rate and Rhythm Lungs: Positive: clear to auscultation Neuro: Positive: Grossly Intact Abdomen: Positive: Soft Extremities: Absent: edema - Labs and Meds Comprehensive Metabolic Panel 03/13/19 03/14/19 Range/Units 13:54 05:29 Sodium 140 139 (137-145) mmol/L Potassium 3.1 L 3.0 L (3.6-5.0) mmol/L Chloride 99.4 101.3 (98-107) mmol/L Carbon Dioxide 26 29 (22-30) mmol/L BUN 24 H 25 H (9-20) mg/dL Creatinine 2.4 H 2.2 H (0.8-1.5) mg/dL Glucose 95 114 H (75-100) mg/dL Calcium 9.2 8.8 (8.4-10.2) mg/dL - Imaging and Cardiology EKG: image reviewed
--- NOTE | 2019-03-14 11:11 | Discharge Summary ---
Providers - Providers Date of Admission: 03/11/19 04:07 Date of discharge: 03/14/19 Attending physician: IVET GILLESPIE 03/11/19 04:07 Consult to Physician [CONS] Routine Comment: Consulting Provider: JACKY CURRIE Physician Instructions: Reason For Exam: sob 03/12/19 14:37 Consult to Physician [CONS] Routine Comment: Consulting Provider: GUILLERMINA BEAULIEU Physician Instructions: Reason For Exam: possible ckd Primary care physician: CASSIDY JACOBS Hospitalization Condition: Stable Hospital course: Patient is a 48-year old male with a history of paroxysmal atrial fibrillation, no longer on anticoagulation, and hypertension presents to this hospital with complaints of shortness of breath and coughs. Chest x-ray reports cardiomegaly with diffuse bilateral pulmonary opacities. Creatinine 2.2. Initial labs also shows a platelet count of 111,000 and severe hypokalemia, potassium of 2.4. WBC is normal. admitted for acute respiratory failure, hypertensive urgency and acute renal failure. Radiological data: Chest x-ray: Cardiomegaly with diffuse bilateral pulmonary opacities 2-D echo: preserved EF with LVH and DD exercise stress test: normal renal US: no hydronephrosis Discharge diagnosis and management: Acute hypoxic respiratory failure due to pulmonary edema - Now resolved with diuresis, likely from diastolic HF Acute diastolic HF with pEF - s/p stress test showed normal function - Cardiology consulted, recommended to treat medically with aggressive blood pressure management, diuretics as tolerated, low-salt diet. Malignant hypertension - Likely due to medication noncompliance - Resumed home meds and adjusted medications and given IV hydralazine as needed Noncompliance with medication, counseled Hypokalemia, repleted Acute renal failure, could be from medication induced versus possible CKD stage 3 - normal findings on renal ultrasound, consulted nephrology, will do further outpt followup Thrombocytopenia, continue to monitor CBC DVT prophylaxis, continue heparin Hospitalist Physical exam: GENERAL: well-developed and well-nourished -[place] male lying on bed appeared to be in no discomfort. HEENT: Normocephalic. Atraumatic. No conjunctival congestion or icterus. Patient has moist mucous membranes. NECK: Supple. Trachea midline. CHEST/LUNGS: Few crackles auscultated bilaterally, breathing nonlabored. No wheezes or rhonchi. HEART/CARDIOVASCULAR: Regular in rate and rhythm. S1 and S2 positive. ABDOMEN: Abdomen is soft, nontender. Patient has normal bowel sounds. SKIN: There is no rash. Warm and dry. NEURO: No focal motor deficit. Follows command. MUSCULOSKELETAL: No joint effusion or tenderness. EXTRIMITY: No edema, no cyanosis or clubbing. PSYCH: Cooperative. Disposition: DC-01 TO HOME OR SELFCARE Time spent for discharge: 34 minutes Core Measure Documentation - Palliative Care Palliative Care/ Comfort Measures: Not Applicable - Core Measures Any of the following diagnoses?: none Exam - Constitutional Vitals: Temp Pulse Resp BP Pulse Ox 98.0 F 80 16 150/107 97 03/14/19 08:25 03/14/19 10:18 03/14/19 08:25 03/14/19 10:18 03/14/19 08:25 Plan Activity: advance as tolerated Weight Bearing Status: Weight Bear as Tolerated Diet: renal Special Instructions: record daily BP diary Follow up with: CASSIDY JACOBS MD [Primary Care Provider] - 3-5 Days MAURICIO TAN MD [Staff Physician] - 7 Days GUILLERMINA BEAULIEU MD [Staff Physician] - 7 Days Prescriptions: AtorvaSTATin [Lipitor] 20 mg PO QHS #30 tab Spironolactone [Aldactone] 25 mg PO QDAY #30 tablet hydrALAZINE [Apresoline TAB] 50 mg PO Q8HR #90 tablet Carvedilol [Coreg] 25 mg PO BID #60 tablet Aspirin EC [Halfprin EC] 81 mg PO QDAY #30 tablet. Potassium Chloride [K-Dur] 20 meq PO QDAY #4 tablet NIFEdipine XL [Procardia Xl] 90 mg PO QDAY #30 tablet
--- NOTE | 2019-03-14 11:48 | Progress Note ---
Assessment and Plan 1. Acute kidney injury: Vasomotor / hemodynamic LV superimposed on CKD in the setting of CHF. Renal US was negative for hydro. Renal function is mostly stable. Suspect worsening CKD. Monitor renal function. Renal function prognosis is guarded. Avoid nephrotoxic agents. Meds dosage based on GFR. 2. FEN: Hypokalemia, replete K. Volume overload, improving with lasix. Monitor lytes. 3. Acute CHF: HFpEF. 4. Uncontrolled Hypertension: BP is better. 5. Medical non-compliance: Counseled. F/u with me in 1-2 weeks. Subjective Date of service: 03/14/19 Interval history: Patient was seen and examined at the bedside. Doing better. Mother at the bedside. Objective - Vital Signs Vital signs: Vital Signs - 12hr 03/14/19 03/14/19 03/14/19 02:16 05:21 05:22 Temperature 97.9 F Pulse Rate 80 86 Respiratory 18 Rate Blood Pressure 131/87 O2 Sat by Pulse 99 Oximetry 03/14/19 03/14/19 08:25 10:18 Temperature 98.0 F Pulse Rate 80 80 Respiratory 16 Rate Blood Pressure 150/107 150/107 O2 Sat by Pulse 97 Oximetry - General Appearance General appearance: well-developed, well-nourished, appears stated age, obese, other (no distress) EENT: ATNC, PERRL, mucous membranes moist, hearing intact, vision intact Neck: no JVD, supple Respiratory: Present: Clear to Ascultation Cardiology: regular, S1S2, no murmurs Gastrointestinal: normoactive bowel sounds, no tenderness, no distended, obese Integumentary: no rash, warm and dry Neurologic: no focal deficit, no asterixis, alert and oriented x3 Musculoskeletal: other (no edema) - Lab 03/12/19 04:37 03/14/19 05:29 Most recent lab results Calcium 8.8 mg/dL (8.4-10.2) 03/14/19 05:29 Phosphorus 2.50 mg/dL (2.5-4.5) 03/12/19 19:52 Magnesium 2.00 mg/dL (1.7-2.3) 03/12/19 19:52 167.3 mg/dL (0.1-20.0) H 03/13/19 04:55 55 mmol/L 03/13/19 04:55 62 mg/dL (5-11.8) H 03/13/19 04:55 Medications & Allergies - Medications Allergies/Adverse Reactions: Allergies No Known Allergies Allergy (Verified 12/19/13 04:26) Home Medications: Home Medications Medication Instructions Recorded Confirmed Last Taken Type Aspirin EC 81 mg PO QDAY #30 tablet. 03/14/19 Unknown Rx AtorvaSTATin [Lipitor] 20 mg PO QHS #30 tab 03/14/19 Unknown Rx Carvedilol [Coreg] 25 mg PO BID #60 tablet 03/14/19 Unknown Rx NIFEdipine XL [Procardia Xl] 90 mg PO QDAY #30 tablet 03/14/19 Unknown Rx Potassium Chloride [K-Dur] 20 meq PO QDAY #4 tablet 03/14/19 Unknown Rx Spironolactone [Aldactone] 25 mg PO QDAY #30 tablet 03/14/19 Unknown Rx hydrALAZINE [Apresoline TAB] 50 mg PO Q8HR #90 tablet 03/14/19 Unknown Rx Active Medications: Generic Name Dose Route Start Last Admin Trade Name Freq PRN Reason Stop Dose Admin Acetaminophen 650 mg 03/11/19 04:07 03/14/19 11:08 Tylenol PO 650 mg Q4H PRN Administration Pain MILD(1-3)/Fever >100.5/ELLIOTT Carvedilol 25 mg 03/11/19 15:00 03/14/19 10:18 Coreg PO 25 mg BID DEISI Administration Furosemide 60 mg 03/12/19 19:00 03/14/19 06:07 Lasix PO 60 mg DAILY@0600 DEISI Administration Heparin Sodium (Porcine) 5,000 unit 03/12/19 22:00 03/14/19 10:19 Heparin SUB-Q 5,000 unit Q12HR DEISI Administration Hydralazine HCl 10 mg 03/11/19 17:46 03/11/19 21:25 Apresoline IV 10 mg Q30MIN PRN Administration HTNN SBP>175 Hydralazine HCl 50 mg 03/11/19 18:00 03/14/19 06:07 Apresoline PO 50 mg Q8HR DEISI Administration Levofloxacin 750 mg 03/14/19 10:00 03/14/19 10:18 Levaquin PO 750 mg Q48HR DEISI Administration Nifedipine 90 mg 03/15/19 11:00 Procardia Xl PO QDAY DEISI Ondansetron HCl 4 mg 03/11/19 04:07 Zofran IV Q8H PRN Nausea And Vomiting Sodium Chloride 10 ml 03/11/19 10:00 03/14/19 10:20 Sodium Chloride Flush Syringe 10 Ml IV 10 ml BID DEISI Administration Sodium Chloride 10 ml 03/11/19 04:07 03/11/19 13:47 Sodium Chloride Flush Syringe 10 Ml IV 10 ml PRN PRN Administration LINE FLUSH Spironolactone 25 mg 03/12/19 19:00 03/14/19 10:18 Aldactone PO 25 mg QDAY DEISI Administration
[2019-03-14 13:53] VITALS: BP 126/90
[2019-03-15] MEDS ORDERED: PROCARDIA XL PO SCH (11:00)
== END 2019-03-14 14:40 | disposition home or self-care (01) | DRG 682 ==
LOC: ED 02:08 → 4A 04:07
PROVIDERS: ADMIT Internal Medicine; ATTEND Internal Medicine
DX: N17.9 Acute kidney failure, unspecified (principal); J96.01 Acute respiratory failure with hypoxia; I50.31 Acute diastolic (congestive) heart failure; J81.1 Chronic pulmonary edema; I13.0 Hypertensive heart and chronic kidney disease with heart failure and stage 1 through stage 4 chronic kidney disease, or unspecified chronic kidney disease; I16.1 Hypertensive emergency; E87.6 Hypokalemia; I25.10 Atherosclerotic heart disease of native coronary artery without angina pectoris; I48.0 Paroxysmal atrial fibrillation; N18.3 Chronic kidney disease, stage 3 (moderate); D69.6 Thrombocytopenia, unspecified; J45.909 Unspecified asthma, uncomplicated; Z82.49 Family history of ischemic heart disease and other diseases of the circulatory system; Z79.82 Long term (current) use of aspirin; Z79.899 Other long term (current) drug therapy; Z91.14 Patient's other noncompliance with medication regimen; I25.2 Old myocardial infarction; Z71.89 Other specified counseling
CPT/HCPCS: 36415; 70450; 71045; 76770; 78452; 80048; 80053; 81001; 82550; 82553; 82570; 83735; 83880; 83970; 84100; 84156; 84300; 84484; 85025; 85379; 85610; 85730; 93005; 93010; 93017; 93306; 94640; 94760; G0378; A9502; J0360; J1644; J1940; J2785; J3480

== ENCOUNTER 2021-04-24 10:27 | Outpatient (CLI) | payer OTHER ==
--- NOTE | 2021-04-24 15:12 | Vascular Lab Report ---
ULTRASOUND RENAL ARTERY DUPLEX IMAGING INDICATION / CLINICAL INFORMATION: ABNORMAL RESULTS OF KIDNEY FUNCTION STUDIES. COMPARISON: March 13, 2019 FINDINGS: RIGHT KIDNEY: Size = 12.0 cm. - Echogenicity: Normal. - Cortical thickness: Normal. - Hydronephrosis: None. - Cyst / Mass: None. - Stones: None seen.. - Renal resistive indices (RI): 0.47, 0.64, 0.68 (Normal < 0.70) - Renal/aortic ratio (RAR): 0.96 (Normal < 3.5) LEFT KIDNEY: Size = 9.8 cm. - Echogenicity: Normal. - Cortical thickness: Normal. - Hydronephrosis: None. - Cyst / Mass: None. - Stones: None seen.. - Renal resistive indices (RI): 0.56, 0.71, 0.75 (Normal < 0.70) - Renal/aortic ratio (RAR): 0.61 (Normal < 3.5) URINARY BLADDER: No significant abnormality. FREE FLUID: None. ADDITIONAL FINDINGS: None. IMPRESSION 1. No significant abnormality. 2. No sonographic evidence for renal artery stenosis. 3. Slightly elevated resistive indices of the left mid and distal renal arteries which can be seen wi th medical renal disease. Signer Name: Reinaldo Zacarias DO Signed: 04/24/2021 3:07 PM Workstation Name: [id number]
== END 2021-04-24 10:28 | disposition home or self-care (01) ==
LOC: VAS 10:27
PROVIDERS: ATTEND Internal Medicine Nephrology
DX: R94.4 Abnormal results of kidney function studies (principal); R73.03 Prediabetes; R31.9 Hematuria, unspecified
CPT/HCPCS: 93975